=== PATIENT | male | born 1955 | race Caucasian/White ===

== ENCOUNTER 2016-07-03 09:59 | Emergency (ER) | payer MEDICARE, OTHER ==
[~2016-07-03] VITALS: Ht 177.8 cm; Wt 79.5 kg
[2016-07-03 10:00] VITALS: BP 131/74; PULSE 96; RESP 16; TEMP 98; O2SAT 99
[2016-07-03 10:15] VITALS: BP 148/87; PULSE 72; RESP 18; O2SAT 99
--- NOTE | 2016-07-03 10:17 | PD ---
HPI Chief Complaint: Back/ Neck Pain or Injury Time Seen by Provider: 10:14 Travel History International Travel<30 days: No Contact w/Intl Traveler<30days: No Traveled to known affect area: No History of Present Illness HPI This is a 61 year-old gentleman who presents with low back pain with radiation down his leg. The patient states it's been there for about 2 and half weeks. He states seen at clinic urgent care and they prescribed him anti-inflammatory drugs and prednisone. He states that this is not working. He is requesting something stronger for the pain. He denies any weakness. He reports pain only. He states the pain is severe enough that it's hard for him to walk because of the discomfort. No loss of bowel or bladder function. No history of IVD drugs. No reported fevers, chills. PFSH Past Medical History Anxiety: Yes GERD: Yes Hepatitis: Yes (c) ?: Not Social History Alcohol Use: No Tobacco Use: No Substance Use: No Allergies-Medications (Allergen,Severity, Reaction): Coded Allergies: No Known Allergies (Unverified , 07/03/16) Reported Meds & Prescriptions Reported Meds & Active Scripts Active Lortab (Hydrocodone-Acetaminophen) 7.5-325 Mg Tab 1 Tab PO Q8HR PRN Flexeril (Cyclobenzaprine HCl) 7.5 Mg Tab 7.5 Mg PO TID Medrol Dosepak (Methylprednisolone) 4 Mg Dspk 4 Mg PO DIRECTED Per Pharmacist direction Review of Systems Except as stated in HPI: all other systems reviewed are Neg General / Constitutional: No: Fever, Chills Gastrointestinal: No: Changes in Bowel Habits, Other (no loss of stool) Genitourinary: No: Incontinence Musculoskeletal: Positive: Pain (low back/made with radiation down right leg.) , No: Weakness Neurologic: No: Weakness, Paresthesia, Incontinence, Sensory Disturbance Physical Exam Narrative GENERAL: Well-nourished, well-developed patient. SKIN: Focused skin assessment warm/dry. HEAD: Normocephalic/atraumatic. EYES: No scleral icterus. No injection or drainage. NECK: Supple, trachea midline. No JVD or lymphadenopathy. MUSCULOSKELETAL: No cyanosis, or edema. BACK: Right paraspinous tenderness at L4-L5 distribution. Positive straight leg at 40. NEUROLOGICAL: Awake and alert. Cranial nerves II through XII intact. Motor grossly within normal limits. Five out of 5 muscle strength in all muscle groups. Normal speech. Data Data Last Documented VS Vital Signs Date Time Temp Pulse Resp B/P Pulse Ox O2 Delivery O2 Flow Rate FiO2 07/03/16 10:15 72 18 148/87 99 Room Air 07/03/16 10:00 98.0 Orders Spine, Lumbar - Ltd (Ap & Lat) (07/03/16 10:14) Pelvis, Ap Only (Routine) (07/03/16 10:14) MDM Medical Decision Making Medical Screen Exam Complete: Yes Emergency Medical Condition: Yes Interpretation(s) Last 24 hours Impressions Pelvis X-Ray 07/03/16 1014 Signed Impressions: Service Date/Time: Sunday, July 03, 2016 10:22 - CONCLUSION: Unremarkable study. Diana Bowens MD Lumbar Spine X-Ray 07/03/16 1014 Signed Impressions: Service Date/Time: Sunday, July 03, 2016 10:23 - CONCLUSION: Chronic changes. Diana Bowens MD Differential Diagnosis Sciatica versus herniated nucleus pulposus versus muscular strain Narrative Course 61-year-old male presents with exacerbation of low back pain. The patient's had pain 2 weeks. The patient has symptoms and exam consistent with right lower extremity sciatica. Patient has no neurologic deficits. X-ray shows calcifications of his ligament flavum. He was seen at an outpatient urgent care and prescribed anti-inflammatory and Skelaxin with 3 doses of prednisone 40 mg. I will treat him with a Medrol Dosepak, Lortab 7.55 days, and Flexeril 7.53 times a day 5 days. He is instructed not to drive or drink alcohol taking his medications. He is also instructed to not take his other medication while taking this medicine. Instructed to follow up with his primary care physician or orthopedic physician if pain continues. Additional Instructions: Do not take old prescribed medications with new medications. Moist heat 2-3 times daily 3-4 days. Avoid heavy lifting. Follow up with orthopedic physician or primary care physician if pain persists. Scripts Hydrocodone-Acetaminophen (Lortab)7.5-325 Mg Tab1 Tab PO Q8HR PRN (PAIN) #15 TAB Ref 0 Prov:Erasto Arias MD 07/03/16 Cyclobenzaprine (Flexeril)7.5 Mg Tab7.5 Mg PO TID #15 TAB Ref 0 Prov:Erasto Arias MD 07/03/16 Methylprednisolone Dosepak (Medrol Dosepak)4 Mg Dspk4 Mg PO DIRECTED #1 DSPK Ref 0 Per Pharmacist direction Prov:Erasto Arias MD 07/03/16 Disposition: 01 DISCHARGE HOME Condition: Stable Erasto Arias MD Jul 03, 2016 10:17
[2016-07-03] MEDS ORDERED: MEDR4PAK PO (10:34)
[2016-07-03] MEDS ORDERED: CYCL7.5T33 PO (10:34)
[2016-07-03] MEDS ORDERED: HYDR-3534 PO (10:34)
--- NOTE | 2016-07-03 10:43 | RADRPT ---
EXAM DATE/TIME: 07/03/2016 10:22 [facility] COMPARISON: No previous studies available for comparison. INDICATIONS : Right side pelvic pain, twisted MEDICAL HISTORY : None. SURGICAL HISTORY : None. ENCOUNTER: Initial ACUITY: 2 weeks PAIN SCORE: 10/10 LOCATION: Right Pelvis FINDINGS: No definite fractures, or dislocations are identified. No definite lytic or sclerotic lesion is seen . The joint spaces are well maintained. CONCLUSION: Unremarkable study. Diana Bowens MD on July 03, 2016 at 10:40 Board Certified Radiologist. This report was verified electronically.
--- NOTE | 2016-07-03 10:44 | RADRPT ---
EXAM DATE/TIME: 07/03/2016 10:23 [facility] COMPARISON: No previous studies available for comparison. INDICATIONS : Back pain, twisted MEDICAL HISTORY : None. SURGICAL HISTORY : None. ENCOUNTER: Initial ACUITY: 2 weeks PAIN SCORE: 10/10 LOCATION: Lumbar spine FINDINGS: No appreciable compression deformities, spondylolisthesis, or spondylolysis is seen. Slight degenera tive changes are seen within the disc space and facets. Chronic atherosclerotic calcifications are se en without any definite aneurysmal dilatations for technique. There is moderate amount of stool throu ghout the colon. There is mild scoliosis convexity towards the right. CONCLUSION: Chronic changes. Diana Bowens MD on July 03, 2016 at 10:42 Board Certified Radiologist. This report was verified electronically.
== END 2016-07-03 11:38 | disposition home or self-care (01) ==
LOC: NEPD 09:59
DX: M54.5 Low back pain (principal); M54.31 Sciatica, right side
CPT/HCPCS: 72100; 72170; 99283

== ENCOUNTER 2016-08-17 10:13 | Emergency (ER) | payer MEDICARE, OTHER ==
[~2016-08-17] VITALS: Ht 177.8 cm; Wt 80.0 kg
[~2016-08-17 10:13] MED LIST: CYCL7.5T33 PO; HYDR-3534 PO; MEDR4PAK PO
[2016-08-17 10:15] VITALS: BP 101/70; PULSE 104; RESP 20; TEMP 97.9; O2SAT 95
--- NOTE | 2016-08-17 10:56 | PD ---
HPI Chief Complaint: Injury Time Seen by Provider: 10:50 Travel History International Travel<30 days: No Contact w/Intl Traveler<30days: No Traveled to known affect area: No History of Present Illness HPI Patient is a 61-year-old male presenting to emergency department for evaluation of left first toe pain. Patient states on Monday he opened his freezer door, catching his toenail, subsequently avulsing it. Patient placed the toenail back in place and applied a Band-Aid. He presents today for evaluation. He reports his pain as a 6 out of 10 and describes it as sore and aching. He has not taken anything for the pain. [facility] Past Medical History Anxiety: Yes Depression: Yes GERD: Yes Hepatitis: Yes (c) Social History Alcohol Use: No Tobacco Use: No Substance Use: No Allergies-Medications (Allergen,Severity, Reaction): Coded Allergies: No Known Allergies (Unverified , 08/17/16) Reported Meds & Prescriptions Reported Meds & Active Scripts Active Reported Vesicare (Solifenacin) 5 Mg Tab 5 Mg PO DAILY Flomax (Tamsulosin HCl) 0.4 Mg Cap 0.4 Mg PO HS Klonopin (Clonazepam) 0.5 Mg Tab 0.5 Mg PO BID Seroquel (Quetiapine Fumarate) 100 Mg Tab 100 Mg PO DAILY Cymbalta DR (Duloxetine HCl) 60 Mg Capdr 40 Mg PO DAILY Prilosec (Omeprazole Magnesium) 20 Mg Tab 40 Review of Systems Except as stated in HPI: all other systems reviewed are Neg Skin: Positive Change in Pigmentation Physical Exam Narrative GENERAL: Well-nourished, well-developed patient. SKIN: Focused skin assessment warm/dry. Left first toenail partially avulsed, toenail is in place. There is mild erythema and edema noted to the left first toe distal to the DIP joint. There is scant exudate noted on the lateral aspect of the toenail. Patient is neurovascularly intact. HEAD: Normocephalic. EYES: No scleral icterus. No injection or drainage. NECK: Supple, trachea midline. No JVD or lymphadenopathy. CARDIOVASCULAR: Regular rate and rhythm without murmurs, gallops, or rubs. RESPIRATORY: Breath sounds equal bilaterally. No accessory muscle use. GASTROINTESTINAL: Abdomen soft, non-tender, nondistended. MUSCULOSKELETAL: No cyanosis, or edema. BACK: Nontender without obvious deformity. No CVA tenderness. Data Data Last Documented VS Vital Signs Date Time Temp Pulse Resp B/P Pulse Ox O2 Delivery O2 Flow Rate FiO2 08/17/16 10:15 97.9 104 20 101/70 95 Room Air Orders Toe (Min 2vws) (08/17/16 ) MDM Medical Decision Making Medical Screen Exam Complete: Yes Emergency Medical Condition: Yes Interpretation(s) Vital Signs Date Time Temp Pulse Resp B/P Pulse Ox O2 Delivery O2 Flow Rate FiO2 08/17/16 10:15 97.9 104 20 101/70 95 Room Air Differential Diagnosis Fracture versus avulsion versus sprain versus strain versus cellulitis versus other Narrative Course Patient is a 61-year-old male presented to emergency department for evaluation of left toenail avulsion. Patient is neurovascularly intact. Imaging ordered and pending. Wound culture obtained. Patient will be placed on antibiotics. Nail is in place. Imaging shows Diagnosis Primary Impression: Avulsed toenail Qualified Code: S91.209A - Avulsed toenail, initial encounter Additional Impressions: Cellulitis Qualified Code: L03.032 - Cellulitis of toe of left foot Toe fracture, left Qualified Code: S92.425A - Closed nondisplaced fracture of distal phalanx of left great toe, initial encounter Referrals: Primary Care Physician 2 days Patient Instructions: Cellulitis (ED), General Instructions, Nail Avulsion (ED) , Toe Fracture (ED) Additional Instructions: He may keep a Band-Aid on left first toenail to keep toenail in place. Apply antibiotic ointment as directed Complete full course of antibiotics as directed Follow-up with your primary doctor in 1-2 days Return to emergency department immediately for any new or worsening symptoms including but not limited to increasing redness, swelling, pain, drainage, fevers. Med/Other Pt SpecificInfo: Prescription(s) given Scripts Cephalexin 500 Mg [id number] Mg PO Q12H 10 Days Ref 0 Prov:Elizabeth Block 08/17/16 Disposition: 01 DISCHARGE HOME Condition: Stable Elizabeth Block August 17, 2016 10:56
[2016-08-17] MEDS ORDERED: VESI5TAB PO (10:58)
[2016-08-17] MEDS ORDERED: CLON.5 PO (10:58)
[2016-08-17] MEDS ORDERED: PRIL20TA2 (10:58)
[2016-08-17] MEDS ORDERED: CYMB60CA PO (10:58)
[2016-08-17] MEDS ORDERED: SERO100T PO (10:58)
[2016-08-17] MEDS ORDERED: TAMS5CAP PO (10:58)
--- NOTE | 2016-08-17 11:17 | RADRPT ---
EXAM DATE/TIME: 08/17/2016 10:47 [facility] COMPARISON: No previous studies available for comparison. INDICATIONS : Evalaute for fracture. Tonenail lifted up. MEDICAL HISTORY : None. SURGICAL HISTORY : None. ENCOUNTER: Initial ACUITY: 3 days PAIN SCORE: 6/10 LOCATION: Left Great toe. FINDINGS: 3 views of the left foot. Bone alignment within normal limits. Faint linear lucencies in the distal p halanx of the great toe indicating possible nondisplaced acute fracture. No cortical step-off. Small corticated ossicle at the lateral aspect of the great toe interphalangeal joint likely represents seq uela of old trauma. CONCLUSION: Possible nondisplaced fracture of the distal phalanx of the great toe seen only on the AP view. Patrick Sage MD on August 17, 2016 at 11:12 Board Certified Radiologist. This report was verified electronically.
[2016-08-17] MEDS ORDERED: CEPH500T PO (11:23)
== END 2016-08-17 11:39 | disposition home or self-care (01) ==
LOC: NEPK 10:13
DX: S91.202A Unspecified open wound of left great toe with damage to nail, initial encounter (principal); L03.032 Cellulitis of left toe; B95.61 Methicillin susceptible Staphylococcus aureus infection as the cause of diseases classified elsewhere; W20.8XXA Other cause of strike by thrown, projected or falling object, initial encounter
CPT/HCPCS: 73660; 86403; 87070; 87077; 87186; 99284